=== PATIENT | male | born 1965 | race Caucasian/White ===

== ENCOUNTER 2016-05-21 21:27 | Emergency (ER) | payer BC, OTHER ==
[~2016-05-21] VITALS: Ht 177.8 cm; Wt 90.7 kg
--- NOTE | 2016-05-21 22:02 | PHYS DOC ---
Past Medical History Past Medical History: Diabetes-Type II, High Cholesterol, Heart Disease Past Surgical History: Coronary Bypass Surgery Alcohol Use: None Drug Use: None Adult General Chief Complaint Chief Complaint: SYNCOPE HPI HPI Patient is a 51 year old male who presents with complaint of a seizure episode. The patient had a seizure episode which took place in the parking lot outside of the emergency department. The patient was with his and stated that he felt that he was having symptoms coming on consistent with previous seizure episodes. The patient's tried to bring the patient to the emergency department before it took place, however the patient unfortunately had his seizure episode before he could make it into the emergency department. Patient has a complicated medical history including coronary artery disease status post multivessel bypass surgery. 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 The patient states that he is having sharp pain across the left side of his chest which is not unusual after having a seizure episode. The patient states that he was diagnosed with seizure disorder at [facility] and has been treated with oral magnesium daily which has helped keep his seizures under control. Patient also is on oxycodone therapy at home for treatment of chronic pain. Patient states that he normally lives at a 4 out of 10 but states that currently he is at 09 out of 10. Patient denies any nausea or vomiting. Patient is having upper epigastric pain currently. Patient has not taken any medications since onset of symptoms. Review of Systems Review of Systems Constitutional: Denies fever or chills [] Eyes: Denies change in visual acuity, redness, or eye pain [] HENT: Denies nasal congestion or sore throat [] Respiratory: Denies cough or shortness of breath [] Cardiovascular: Chest pain [] GI: Abdominal pain, denies nausea, vomiting, bloody stools or diarrhea [] : Denies dysuria or hematuria [] Musculoskeletal: Denies back pain or joint pain [] Integument: Denies rash or skin lesions [] Neurologic: Denies headache, focal weakness or sensory changes [] Current Medications Current Medications Current Medications Medications (Trade) Dose Ordered Sig/Boyd Start Time Stop Time Status Last Admin Dose Admin Hydromorphone HCl (Dilaudid) 2 mg 1X ONCE 05/21/16 23:45 05/21/16 23:46 DC 05/21/16 23:38 2 MG Magnesium Sulfate/ Dextrose (Magnesium Sulfate PREMIX 2GM) 50 ml @ 25 mls/hr 1X ONCE 05/21/16 23:00 05/21/16 23:52 DC 05/21/16 23:05 25 MLS/HR Ondansetron HCl 4 mg 4 mg 1X ONCE 05/21/16 22:30 05/21/16 22:31 DC 05/21/16 22:15 4 MG Sodium Chloride (Iv Sodium Chloride 0.9% 1000ml Bag) 1,000 ml @ 1,000 mls/hr Q1H 05/21/16 22:30 05/21/16 23:29 DC 05/21/16 22:14 1,000 MLS/HR Allergies Allergies Allergies Coded Allergies Type Severity Reaction Last Updated Verified Penicillins Allergy Intermediate 01/09/16 Yes ketorolac Allergy Intermediate 01/09/16 Yes Physical Exam Physical Exam Constitutional: Alert, afebrile, appears in moderate discomfort. [] HENT: Normocephalic, atraumatic, bilateral external ears normal, oropharynx moist, no oral exudates, nose normal. [] Eyes: PERRLA, EOMI, conjunctiva normal, no discharge. [] Neck: Normal range of motion, no tenderness, supple, no stridor. [] Cardiovascular: Tachycardia, regular rhythm, no murmur [] Lungs & Thorax: Bilateral breath sounds clear to auscultation, there is palpation along anterior chest wall causing reproducible pain [] Abdomen: Bowel sounds normal, soft, no tenderness, no masses, no pulsatile masses. [] Skin: Warm, dry, no erythema, no rash. [] Back: No tenderness, no CVA tenderness. [] Extremities: No tenderness, no cyanosis, no clubbing, ROM intact, no edema. [] Neurologic: Alert and oriented X 3, normal motor function, normal sensory function, no focal deficits noted. [] Current Patient Data Vital Signs Vital Signs Date Time Temp Pulse Resp B/P Pulse Ox O2 Delivery O2 Flow Rate FiO2 05/21/16 23:40 97 115/67 95 Room Air 05/21/16 23:38 16 05/21/16 21:38 98.4 98.4 Lab Values Laboratory Tests Test 05/21/16 21:41 05/21/16 21:48 05/21/16 22:26 White Blood Count 8.4x10^3/uL (4.0-11.0) Red Blood Count 5.90x10^6/uL (4.30-5.70) H Hemoglobin 16.2g/dL (13.0-17.5) Hematocrit 49.2% (39.0-53.0) Mean Corpuscular Volume 83fL (79-100) Mean Corpuscular Hemoglobin 28pg (25-35) Mean Corpuscular Hemoglobin Concent 33g/dL (31-37) Red Cell Distribution Width 14.1% (11.5-14.5) Platelet Count 191x10^3/uL (140-400) Neutrophils (%) (Auto) 63% (31-73) Lymphocytes (%) (Auto) 25% (24-48) Monocytes (%) (Auto) 10% (0-9) H Eosinophils (%) (Auto) 2% (0-3) Basophils (%) (Auto) 0% (0-3) Neutrophils # (Auto) 5.3x10^3uL (1.8-7.7) Lymphocytes # (Auto) 2.1x10^3/uL (1.0-4.8) Monocytes # (Auto) 0.8x10^3/uL (0.0-1.1) Eosinophils # (Auto) 0.2x10^3/uL (0.0-0.7) Basophils # (Auto) 0.0x10^3/uL (0.0-0.2) Sodium Level 141mmol/L (136-145) Potassium Level 3.9mmol/L (3.5-5.1) Chloride Level 101mmol/L (98-107) Carbon Dioxide Level 29mmol/L (21-32) Anion Gap 11 (6-14) Blood Urea Nitrogen 18mg/dL (8-26) Creatinine 0.8mg/dL (0.7-1.3) Estimated GFR (Cockcroft-Gault) 101.1 Glucose Level 297mg/dL (70-99) H Calcium Level 9.6mg/dL (8.5-10.1) Magnesium Level 1.6mg/dL (1.8-2.4) L Total Bilirubin 0.5mg/dL (0.2-1.0) Direct Bilirubin 0.2mg/dL (0.0-0.2) Aspartate Amino Transferase (AST) 19U/L (15-37) Alanine Aminotransferase (ALT) 32U/L (16-63) Alkaline Phosphatase 35U/L (46-116) L Creatine Kinase 51U/L (39-308) Creatine Kinase MB (Mass) 0.8ng/mL (0.0-3.6) Creatine Kinase MB Relative Index 1.6% (0-4) Troponin I Quantitative < 0.017ng/mL (0.000-0.055) CY-Sse-W-Type Natriuretic Peptide 107pg/mL (0-124) Total Protein 7.6g/dL (6.4-8.2) Albumin 4.2g/dL (3.4-5.0) Lipase 192U/L (73-393) Glucose (Fingerstick) 287mg/dL (70-99) H Urine Collection Type Unknown Urine Color Yellow Urine Clarity Clear Urine pH 6.5 Urine Specific [place] 1.020 Urine Protein Negativemg/dL (NEG-TRACE) Urine Glucose (UA) >=1000mg/dL (NEG) Urine Ketones (Stick) Negativemg/dL (NEG) Urine Blood Negative (NEG) Urine Nitrite Negative (NEG) Urine Bilirubin Negative (NEG) Urine Urobilinogen Dipstick 0.2mg/dL (0.2 mg/dL) Urine Leukocyte Esterase Negative (NEG) Urine RBC 0/HPF (0-2) Urine WBC Occ/HPF (0-4) Urine Squamous Epithelial Cells Occ/LPF Urine Bacteria 0/HPF (0-FEW) Urine Hyaline Casts Occasional/HPF Urine Mucus Slight/LPF Laboratory Tests 05/21/16 21:41 Laboratory Tests 05/21/16 21:41 EKG EKG Interpreted by me: Heart rate 92, sinus rhythm, normal intervals, normal axis, no acute ST/T wave sounds present [] Radiology/Procedures Radiology/Procedures One view AP chest x-ray interpreted by me: No infiltrates, no effusions, normal cardiac silhouette [] Course & Med Decision Making Course & Med Decision Making Pertinent Labs and Imaging studies reviewed. (See chart for details) The patient was treated with IV Dilaudid with improvement good improvement in pain symptoms. The patient was found to have a low magnesium level of 1.6 and was given 2 g of IV magnesium sulfate. On reevaluation, patient states he feels much better and would like to go home. Advised patient follow-up with his primary doctor in the next 3-5 days and return to emergency department for any worsening symptoms. Patient voiced understanding and in agreement with treatment plan. Dragon Disclaimer Dragon Disclaimer This electronic medical record was generated, in whole or in part, using a voice recognition dictation system. Departure Departure Impression: Primary Impression: Chest wall pain Additional Impressions: Hypomagnesemia Seizure disorder Disposition: HOME, SELF-CARE Condition: IMPROVED Referrals: NO PCP (PCP) Patient Instructions: Chest Wall Pain, Hypomagnesemia Additional Instructions: Follow-up with your primary doctor in the next 3-5 days. Return to the emergency department for any worsening symptoms. Problem Qualifiers KENDELL REY MD May 21, 2016 22:02
[2016-05-21 22:08] LABS: BASO % 0 % (0-3); EOS % 2 % (0-3); HEMATOCRIT 49.2 % (39.0-53.0); HEMOGLOBIN 16.2 g/dL (13.0-17.5); LYMPH # 2.1 x10^3/uL (1.0-4.8); LYMPH % 25 % (24-48); MEAN CORPUSCULAR HEMOGLOBIN 28 pg (25-35); MEAN CORPUSCULAR HGB CONC 33 g/dL (31-37); MEAN CORPUSCULAR VOLUME 83 fL (79-100); MONO % 10 % (0-9); NEUT % 63 % (31-73); PLATELET COUNT 191 x10^3/uL (140-400); RED CELL DISTRIBUTION WIDTH 14.1 % (11.5-14.5); WHITE BLOOD COUNT 8.4 x10^3/uL (4.0-11.0)
[2016-05-21 22:17] LABS: CALCIUM 9.6 mg/dL (8.5-10.1); CREATININE 0.8 mg/dL (0.7-1.3); GFR 101.1; POTASSIUM 3.9 mmol/L (3.5-5.1)
[2016-05-21 22:23] LABS: ALBUMIN 4.2 g/dL (3.4-5.0); DIRECT BILIRUBIN 0.2 mg/dL (0.0-0.2); MAGNESIUM 1.6 mg/dL (1.8-2.4); TOTAL BILIRUBIN 0.5 mg/dL (0.2-1.0); TOTAL PROTEIN 7.6 g/dL (6.4-8.2)
[2016-05-21] MEDS ORDERED: IV NORMAL SALINE 1000ML BAG 1,000 ML IV SCH (22:30)
[2016-05-21] MEDS ORDERED: HYDROMORPHONE 2 MG/ML VIAL. IV ONE ×3 (22:30→23:45)
[2016-05-21] MEDS ORDERED: ONDANSETRON PF 4 MG/2 ML VIAL. IV ONE (22:30)
[2016-05-21 22:32] LABS: CKMB INDEX 1.6 % (0-4); CKMB MASS 0.8 ng/mL (0.0-3.6)
[2016-05-21 22:33] LABS: BILIRUBIN,URINE NEGATIVE (NEG); GLUCOSE,URINE >=1000 mg/dL (NEG); NITRITE,URINE NEGATIVE (NEG); PH,URINE 6.5; PROTEIN,URINE NEGATIVE (NEG-TRACE); UROBILINOGEN,URINE 0.2 mg/dL (0.2 mg/dL)
[2016-05-21 22:39] LABS: BACTERIA,URINE 0 /HPF (0-FEW); RBC,URINE 0 /HPF (0-2); SQUAMOUS EPITHELIAL CELL,UR OCC /LPF; WBC,URINE OCC /HPF (0-4)
[2016-05-21] MEDS ORDERED: MAGNESIUM SULFATE 2GM 50 ML IV ONE (23:00)
[2016-05-21 23:40] VITALS: BP 115/67
--- NOTE | 2016-05-22 06:27 | EKG ---
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
--- NOTE | 2016-05-22 07:55 | RAD ---
Portable chest, 05/21/2016: History: Seizure, left-sided chest pain The heart size and pulmonary vascularity are normal. No pulmonary infiltrates are seen. There is no evidence of pleural fluid. IMPRESSION: No acute cardiopulmonary abnormality is detected.
== END 2016-05-21 23:45 | disposition home or self-care (01) ==
LOC: ER 21:27
DX: G40.909 Epilepsy, unspecified, not intractable, without status epilepticus (principal); R07.89 Other chest pain; E83.42 Hypomagnesemia; R00.0 Tachycardia, unspecified; R10.13 Epigastric pain; G89.29 Other chronic pain; E11.9 Type 2 diabetes mellitus without complications; E78.00 Pure hypercholesterolemia, unspecified; I25.10 Atherosclerotic heart disease of native coronary artery without angina pectoris; Z95.1 Presence of aortocoronary bypass graft; Z88.0 Allergy status to penicillin; Z88.6 Allergy status to analgesic agent; Z79.891 Long term (current) use of opiate analgesic
CPT/HCPCS: 36415; 71010; 80048; 80076; 81001; 82553; 82947; 83690; 83735; 83880; 84484; 85027; 93005; 96361; 96365; 96375; 96376; 99285; J1170; J2405; J7030; J7060

== ENCOUNTER 2017-02-22 22:13 | Emergency (ER) | payer OTHER, BC ==
[2017-02-22 22:42] LABS: ADD MAN DIFF? NO
[2017-02-22 22:46] LABS: BASO % 0 % (0-3); EOS # 0.2 x10^3/uL (0.0-0.7); EOS % 2 % (0-3); HEMATOCRIT 46.4 % (39.0-53.0); HEMOGLOBIN 15.1 g/dL (13.0-17.5); LYMPH # 3.3 x10^3/uL (1.0-4.8); LYMPH % 40 % (24-48); MEAN CORPUSCULAR HEMOGLOBIN 27 pg (25-35); MEAN CORPUSCULAR HGB CONC 33 g/dL (31-37); MEAN CORPUSCULAR VOLUME 83 fL (79-100); MONO # 0.8 x10^3/uL (0.0-1.1); MONO % 9 % (0-9); NEUT % 49 % (31-73); PLATELET COUNT 252 x10^3/uL (140-400); RED BLOOD COUNT 5.59 x10^6/uL (4.30-5.70); RED CELL DISTRIBUTION WIDTH 15.3 % (11.5-14.5); WHITE BLOOD COUNT 8.3 x10^3/uL (4.0-11.0)
[2017-02-22 22:58] LABS: MAGNESIUM 1.3 mg/dL (1.8-2.4)
[2017-02-22 22:58] LABS: ANION GAP 14 (6-14); BLOOD UREA NITROGEN 20 mg/dL (8-26); BUN/CREATININE RATIO 29 (6-20); CALCIUM 9.2 mg/dL (8.5-10.1); CARBON DIOXIDE 26 mmol/L (21-32); CHLORIDE 105 mmol/L (98-107); CREATININE 0.7 mg/dL (0.7-1.3); GFR 117.5; GLUCOSE 262 mg/dL (70-99); POTASSIUM 4.1 mmol/L (3.5-5.1); SODIUM 145 mmol/L (136-145)
[2017-02-22] MEDS: ASPIRIN CHEWABLE 81 MG TABLET. PO ×2 (22:59)
[2017-02-22 23:04] LABS: ALBUMIN 3.8 g/dL (3.4-5.0); ALBUMIN/GLOBULIN RATIO 1.5 (1.0-1.7); ALK PHOS 31 U/L (46-116); ALT (SGPT) 22 U/L (16-63); AST (SGOT) 14 U/L (15-37); TOTAL BILIRUBIN 0.3 mg/dL (0.2-1.0); TOTAL PROTEIN 6.4 g/dL (6.4-8.2)
[2017-02-22] MEDS: HYDROmorphone 2 MG/ML VIAL IV ×2 (23:04)
[2017-02-22] MEDS: IV NORMAL SALINE 1000ML BAG 1,000 ML IV ×2 (23:04)
[2017-02-22 23:06] LABS: TROPONINI < 0.017 ng/mL (0.000-0.055)
[2017-02-23] MEDS: HYDROmorphone 2 MG/ML VIAL IV ×2 (00:35)
[2017-02-23] MEDS: MAGNESIUM SULFATE 2GM 50 ML IV ×2 (00:36)
== END 2017-02-23 01:08 | disposition left against medical advice (07) ==
LOC: ER 02-23 01:08
DX: R07.89 Other chest pain (principal); Z76.5 Malingerer [conscious simulation]; L98.9 Disorder of the skin and subcutaneous tissue, unspecified; E11.9 Type 2 diabetes mellitus without complications; E78.00 Pure hypercholesterolemia, unspecified; I25.10 Atherosclerotic heart disease of native coronary artery without angina pectoris; I25.2 Old myocardial infarction; Z95.1 Presence of aortocoronary bypass graft; Z98.890 Other specified postprocedural states; Z86.79 Personal history of other diseases of the circulatory system; Z79.82 Long term (current) use of aspirin; Z88.6 Allergy status to analgesic agent; Z88.0 Allergy status to penicillin
CPT/HCPCS: 36415; 71045; 80053; 83735; 84484; 85025; 93005; 96361; 96374; 96376; 99285-25; J1170; J7030; J7060

== ENCOUNTER 2018-02-25 15:54 | Emergency (ER) | payer OTHER ==
[2017-02-23 00:37] VITALS: BP 117/71
[2018-02-25] MEDS ORDERED: ASPIRIN CHEWABLE 81 MG TABLET. PO ONE (16:30)
[2018-02-25] MEDS ORDERED: ONDANSETRON PF 4 MG/2 ML VIAL. IV ONE (16:30)
--- NOTE | 2018-02-25 16:44 | RAD ---
PROCEDURE: PORTABLE CHEST 1V CLINICAL INDICATION: CHEST PAIN, NAUSEA X1 DAY COMPARISON: 02/22/2017 FINDINGS: No pneumothorax identified. Cardiac and mediastinal contours unremarkable. No pulmonary consolidation or acute airspace disease. No acute osseous abnormalities identified. IMPRESSION: No pulmonary consolidation or acute airspace disease. Electronically signed by: Ralph Ovalles DO (02/25/2018 4:40 PM) [id number]
--- NOTE | 2018-02-25 16:54 | EKG ---
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
--- NOTE | 2018-02-25 17:02 | PHYS DOC ---
Past Medical History Past Medical History: Diabetes-Type II, High Cholesterol, Heart Disease, [place], Other Additional Past Medical Histor: CARDIAC CONVULSIVE SYNCOPE Past Surgical History: Coronary Bypass Surgery, Other Additional Past Surgical Histo: "12 THORACIC SURGERIES" Alcohol Use: None Drug Use: None Adult General Chief Complaint Chief Complaint: CHEST PAIN HPI HPI Patient is a 53 year old male who presents with complaining of chest pain. Patient states [place] and developed substernal and epigastric aching pain as a constant pain with episodes of sharp pain. Patient complaining of nausea and shortness of breath without palpitation , vomiting, radiation of pain, fever and chills. Patient had extensive cardiac history with unhealed sternal wound and hypomagnesemia and taking Dilaudid and magnesium level central line at home by himself. Patient states he was [facility] with diagnose of pancreatitis. Patient rated his pain 8/10 and he states his pain did not change with taking nitroglycerin 2 by himself and asking for pain medication. Review of Systems Review of Systems Constitutional: Denies fever or chills [] Eyes: Denies change in visual acuity, redness, or eye pain [] HENT: Denies nasal congestion or sore throat [] Respiratory: Denies cough, reports shortness of breath [] Cardiovascular: No additional information not addressed in HPI [] GI: Denies abdominal pain, vomiting, bloody stools or diarrhea , reports nausea [] : Denies dysuria or hematuria [] Musculoskeletal: Denies back pain or joint pain [] Integument: Denies rash or skin lesions [] Neurologic: Denies headache, focal weakness or sensory changes [] Endocrine: Denies polyuria or polydipsia [] All other systems were reviewed and found to be within normal limits, except as documented in this note. Current Medications Current Medications Current Medications Medications (Trade) Dose Ordered Sig/Boyd Start Time Stop Time Status Last Admin Dose Admin Aspirin (Children'S Aspirin) 324 mg 1X ONCE 02/25/18 16:30 02/25/18 16:31 DC Ondansetron HCl (Zofran) 4 mg 1X ONCE 02/25/18 16:30 02/25/18 16:31 DC Allergies Allergies Allergies Coded Allergies Type Severity Reaction Last Updated Verified Penicillins Allergy Intermediate 01/09/16 Yes ketorolac Allergy Intermediate 01/09/16 Yes Physical Exam Physical Exam Constitutional: Well developed, well nourished, mild distress, non-toxic appearance. [] HENT: Normocephalic, atraumatic, oropharynx moist, no oral exudates, nose normal. [] Eyes: PERRLA, EOMI, conjunctiva normal, no discharge. [] Neck: Normal range of motion, no tenderness, supple, no stridor. [] Cardiovascular:Heart rate regular rhythm, no murmur [] Lungs & Thorax: Bilateral breath sounds clear to auscultation, substernal chest wall reproducible pain [] Abdomen: Bowel sounds normal, soft, no tenderness, no masses, no pulsatile masses. [] Skin: Warm, dry, no erythema, no rash. [] Back: No tenderness, no CVA tenderness. [] Extremities: No tenderness, no cyanosis, no clubbing, ROM intact, no edema. [] Neurologic: Alert and oriented X 3, normal motor function, normal sensory function, no focal deficits noted. [] Psychologic: Affect anxious and defensive, judgement normal, mood normal. [] EKG EKG EKG interpreted by me. EKG at 1614 showed sinus tachycardia at rate of 107, left atrial abnormalities, poor R-wave progress in anteroseptal leads, no acute ST and T-wave abnormalities. Radiology/Procedures Radiology/Procedures [] Course & Med Decision Making Course & Med Decision Making Evaluation of patient in ER showed 53-year-old male patient with complaining of chest pain. Patient is known to me from [facility] with frequent emergency room visits related to chest pain and demanding for high doses of narcotic pain medication. Patient refused to have labs and only wanted to have pain medication. Patient signed AGAINST MEDICAL ADVICE and decided to go to another hospital. Dragon Disclaimer Dragon Disclaimer This electronic medical record was generated, in whole or in part, using a voice recognition dictation system. Departure Departure Impression: Primary Impression: Chest pain Additional Impression: Left against medical advice Disposition: 07 AGAINST MEDICAL ADVICE (at 1635) Condition: STABLE Referrals: NO PCP (PCP) Problem Qualifiers WING STEVENSON MD Feb 25, 2018 17:02
== END 2018-02-25 16:38 | disposition left against medical advice (07) ==
LOC: ER 15:54
DX: R07.2 Precordial pain (principal); R10.13 Epigastric pain; R06.02 Shortness of breath; R11.2 Nausea with vomiting, unspecified; R50.9 Fever, unspecified; E11.9 Type 2 diabetes mellitus without complications; E78.00 Pure hypercholesterolemia, unspecified; I25.2 Old myocardial infarction; Z95.1 Presence of aortocoronary bypass graft; Z86.79 Personal history of other diseases of the circulatory system; Z88.0 Allergy status to penicillin; Z88.6 Allergy status to analgesic agent
CPT/HCPCS: 71045; 93005; 99283

== ENCOUNTER 2018-06-09 23:58 | Emergency (ER) | payer OTHER ==
[~2018-06-09] VITALS: Ht 177.8 cm; Wt 86.2 kg
[2018-06-10] MEDS ORDERED: IV NORMAL SALINE 1000ML BAG 1,000 ML IV ONE (00:15)
[2018-06-10] MEDS ORDERED: ASPIRIN 325 MG TABLET PO ONE (00:15)
[2018-06-10 00:24] LABS: BASO # 0.1 x10^3/uL (0.0-0.2); BASO % 1 % (0-3); EOS # 0.2 x10^3/uL (0.0-0.7); EOS % 3 % (0-3); HEMATOCRIT 40.5 % (39.0-53.0); HEMOGLOBIN 13.3 g/dL (13.0-17.5); LYMPH # 3.1 x10^3/uL (1.0-4.8); LYMPH % 41 % (24-48); MEAN CORPUSCULAR HEMOGLOBIN 26 pg (25-35); MEAN CORPUSCULAR HGB CONC 33 g/dL (31-37); MEAN CORPUSCULAR VOLUME 80 fL (79-100); MONO # 0.7 x10^3/uL (0.0-1.1); MONO % 9 % (0-9); NEUT # 3.4 x10^3uL (1.8-7.7); NEUT % 46 % (31-73); PLATELET COUNT 243 x10^3/uL (140-400); RED BLOOD COUNT 5.05 x10^6/uL (4.30-5.70); RED CELL DISTRIBUTION WIDTH 15.6 % (11.5-14.5); WHITE BLOOD COUNT 7.5 x10^3/uL (4.0-11.0)
[2018-06-10 00:36] LABS: CALCIUM 9.4 mg/dL (8.5-10.1); CREATININE 0.7 mg/dL (0.7-1.3); GFR 117.1; POTASSIUM 3.8 mmol/L (3.5-5.1)
[2018-06-10 00:42] LABS: ALBUMIN/GLOBULIN RATIO 1.4 (1.0-1.7); MAGNESIUM 1.4 mg/dL (1.8-2.4); TOTAL BILIRUBIN 0.3 mg/dL (0.2-1.0); TOTAL PROTEIN 6.9 g/dL (6.4-8.2)
[2018-06-10 00:52] LABS: CREATINE KINASE 45 U/L (39-308)
--- NOTE | 2018-06-10 00:52 | PHYS DOC ---
Past Medical History Past Medical History: Diabetes-Type II, High Cholesterol, Heart Disease, [place], Seizure, Other Additional Past Medical Histor: CARDIAC CONVULSIVE SYNCOPE, Hypomagnesemia (MALINA MUSTAFA DO) Past Surgical History: Coronary Bypass Surgery, Other Additional Past Surgical Histo: "12 THORACIC SURGERIES" (MALINA MUSTAFA DO) Smoking: Cigarettes Alcohol Use: None Drug Use: None (MALINA MUSTAFA DO) Adult General Chief Complaint Chief Complaint: CHEST PAIN HPI HPI 53-year-old male with past medical history of CAD requiring CABG and history of seizures secondary to low magnesium levels presents with report of seizure which occurred at 2200. Spouse reports this was a witnessed seizure which lasted marcin roximately 60-90 seconds. Patient did have a postictal episode lasting approximately 40 minutes. Patient subsequently reported some substernal chest pain. 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 Patient does receive chronic pain medication- Dilaudid. Patient is currently under a pain contract. 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 Patient reports his pain level normally is around a 5 but currently is at an 8. Patient also reports some increased stressors including moving homes recently. Patient reports he also was exerting himself over the last few days during this move. Denies any leg swelling or calf tenderness. Denies history of DVT/PE. Patient reports he thinks his magnesium level might be low. Patient did take 324 mg of aspirin and 2 sublingual nitroglycerin prior to arrival. (MALINA MUSTAFA DO) Review of Systems Review of Systems Constitutional: Denies fever or chills [] Eyes: Denies change in visual acuity, redness, or eye pain [] HENT: Denies nasal congestion or sore throat [] Respiratory: Denies cough or shortness of breath [] Cardiovascular: Reports chest pain and palpitations GI: Denies abdominal pain, nausea, vomiting, or diarrhea [] : Denies dysuria or hematuria [] Musculoskeletal: Denies back pain or joint pain [] Integument: Denies rash or skin lesions [] Neurologic: Denies headache, focal weakness or sensory changes [] Complete systems were reviewed and found to be within normal limits, except as documented in this note. (MALINA MUSTAFA DO) Current Medications Current Medications Current Medications Medications (Trade) Dose Ordered Sig/Boyd Start Time Stop Time Status Last Admin Dose Admin Aspirin (Avani Aspirin) 325 mg 1X ONCE 06/10/18 00:15 06/10/18 00:16 DC Hydromorphone HCl (Dilaudid) 2 mg 1X ONCE 06/10/18 02:30 06/10/18 02:31 DC 06/10/18 02:45 2 MG Insulin Human Lispro (HumaLOG) 10 units 1X ONCE 06/10/18 01:15 06/10/18 01:16 DC 06/10/18 01:33 10 UNITS Magnesium Sulfate/ Dextrose 100 ml @ 25 mls/hr 1X ONCE 06/10/18 01:15 06/10/18 03:31 DC 06/10/18 01:29 25 MLS/HR Sodium Chloride 1,000 ml @ 1,000 mls/hr 1X ONCE 06/10/18 00:15 06/10/18 01:15 DC 06/10/18 00:22 1,000 MLS/HR (SARAI SCHWARZ MD) Allergies Allergies Allergies Coded Allergies Type Severity Reaction Last Updated Verified Penicillins Allergy Intermediate 01/09/16 Yes ketorolac Allergy Intermediate 01/09/16 Yes codeine Allergy Mild Itching 06/10/18 Yes (SARAI SCHWARZ MD) Physical Exam Physical Exam Constitutional: Well developed, well nourished, no acute distress, non-toxic appearance. [] HENT: Normocephalic, atraumatic, oropharynx moist Eyes: Conjunctiva normal, no discharge. [] Neck: Normal range of motion, no tenderness, supple, no stridor. [] Cardiovascular: Heart rate regular rhythm, healed midline sternum, tender to pa lpation Lungs & Thorax: Bilateral breath sounds clear to auscultation [] Abdomen: Soft, no tenderness Skin: Warm, dry, no erythema, no rash. [] Back: No calves tenderness, no CVA tenderness. [] Extremities: No tenderness, ROM intact, no edema. [] Neurologic: Alert and oriented X 3, no focal deficits noted. [] Psychologic: Affect normal, judgement normal, mood normal. [] (MALINA MUSTAFA DO) Current Patient Data Vital Signs Vital Signs Date Time Temp Pulse Resp B/P (MAP) Pulse Ox O2 Delivery O2 Flow Rate FiO2 06/10/18 02:48 80 20 158/76 (103) 95 06/09/18 23:58 98.4 Room Air 98.4 (SARAI SCHWARZ MD) Lab Values Laboratory Tests Test 06/10/18 00:10 06/10/18 02:04 06/10/18 02:05 White Blood Count 7.5 x10^3/uL (4.0-11.0) Red Blood Count 5.05 x10^6/uL (4.30-5.70) Hemoglobin 13.3 g/dL (13.0-17.5) Hematocrit 40.5 % (39.0-53.0) Mean Corpuscular Volume 80 fL (79-100) Mean Corpuscular Hemoglobin 26 pg (25-35) Mean Corpuscular Hemoglobin Concent 33 g/dL (31-37) Red Cell Distribution Width 15.6 % (11.5-14.5) H Platelet Count 243 x10^3/uL (140-400) Neutrophils (%) (Auto) 46 % (31-73) Lymphocytes (%) (Auto) 41 % (24-48) Monocytes (%) (Auto) 9 % (0-9) Eosinophils (%) (Auto) 3 % (0-3) Basophils (%) (Auto) 1 % (0-3) Neutrophils # (Auto) 3.4 x10^3uL (1.8-7.7) Lymphocytes # (Auto) 3.1 x10^3/uL (1.0-4.8) Monocytes # (Auto) 0.7 x10^3/uL (0.0-1.1) Eosinophils # (Auto) 0.2 x10^3/uL (0.0-0.7) Basophils # (Auto) 0.1 x10^3/uL (0.0-0.2) Prothrombin Time 13.0 SEC (11.7-14.0) Prothrombin Time INR 1.0 (0.8-1.1) Sodium Level 136 mmol/L (136-145) Potassium Level 3.8 mmol/L (3.5-5.1) Chloride Level 98 mmol/L (98-107) Carbon Dioxide Level 25 mmol/L (21-32) Anion Gap 13 (6-14) Blood Urea Nitrogen 15 mg/dL (8-26) Creatinine 0.7 mg/dL (0.7-1.3) Estimated GFR (Cockcroft-Gault) 117.1 BUN/Creatinine Ratio 21 (6-20) H Glucose Level 348 mg/dL (70-99) H Calcium Level 9.4 mg/dL (8.5-10.1) Magnesium Level 1.4 mg/dL (1.8-2.4) L Total Bilirubin 0.3 mg/dL (0.2-1.0) Aspartate Amino Transferase (AST) 11 U/L (15-37) L Alanine Aminotransferase (ALT) 21 U/L (16-63) Alkaline Phosphatase 34 U/L (46-116) L Creatine Kinase 45 U/L (39-308) Creatine Kinase MB (Mass) 0.6 ng/mL (0.0-3.6) Creatine Kinase MB Relative Index % (0-4) Troponin I Quantitative < 0.017 ng/mL (0.000-0.055) 0.021 ng/mL (0.000-0.055) ID-Hxd-P-Type Natriuretic Peptide 62 pg/mL (0-124) Total Protein 6.9 g/dL (6.4-8.2) Albumin 4.0 g/dL (3.4-5.0) Albumin/Globulin Ratio 1.4 (1.0-1.7) Lipase 331 U/L (73-393) Glucose (Fingerstick) 267 mg/dL (70-99) H Laboratory Tests 06/10/18 00:10 Laboratory Tests 06/10/18 00:10 (SARAI SCHWARZ MD) EKG EKG @0005 NSR at 92bpm, NO ST elevation, Q wave in III, compared to prior EKG from without significant change. (MALINA MUSTAFA DO) Course & Med Decision Making Course & Med Decision Making Pertinent Labs and Imaging studies reviewed. 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 Patient reports interval chest pain. Patient had taken 325 mg of aspirin and 2 sublingual Nitroglycerin prior to arrival. Patient does have chronic pain disorder. Dilaudid 2 mg IV push provided. IV fluid hydration given. EKG stable. Labs obtained and posted to chart. Troponin WNL, Hypomagnesemia noted at 1.4. Patient reports his management plan for that level is usually 4grams of Mag. Mag ordered. Hyperglycemia addressed. Chest x-ray pending. HEART score 4. Pain likely secondary to chronic chest wall pain with acute on chronic seizure due to hypomagnesemia. However cannot fully exclude ACD. Patient offered admission for further evaluation. Patient reports he thinks more likely his chronic pain due to malunion and requests to follow-up as outpatient. Repeat troponin therefore ordered at 2 hours from initial. Sign out given to Dr. Schwarz for further evaluation and final disposition. Discussed current plan and findings with patient and family, who acknowledge understanding and agreement. (MALINA MUSTAFA DO) Course & Med Decision Making I received signout from Dr. Mustafa at 1 AM, he asked me to check another troponin at 2 AM reevaluate the patient. Detailed history was noted above and I did talk to the patient in the in detail again I reevaluated him. He said his pain is down to a 6 out of 10 from a 9 out of 10. He does relate a seizure history, he says every time he has a seizure the chronic sternal pain gets worse because the "bones rubbing together". He does have reproducible tenderness to palpation on his sternum which is abnormally shaped. Of note he does have several presentations to this emergency room with a very very similar complaints. He also has received a total of 2 doses of IV Dilaudid in the emergency room on my reevaluation of him. Noted the second troponin is 0.0 to one still well within the normal range. This is 4 hours after the event in light of the within normal limits troponin and the very atypical story very unlikely to be an acute coronary syndrome and a long history of chronic pain I think at this point in time it is reasonable to rule out acute N STEMI. I did talk to the patient about options now which would include going home and continuing his oral pain regimen and following up with his doctors or possibly being observed in the emergency room for a few more hours or being admitted to the hospital. At this time he does feel that this is his chronic pain we talked about further pain management I did say that I felt 2 doses of IV Dilaudid was reasonable and appropriate he does have tolerable pain at this moment. In light of all that he did consent to being discharged at this time I think overall this seems reasonable given the whole spectrum of his history. (SARAI SCHWARZ MD) Dragon Disclaimer Dragon Disclaimer This electronic medical record was generated, in whole or in part, using a voice recognition dictation system. (MALINA MUSTAFA DO) Departure Departure Impression: Primary Impression: Chest pain Additional Impressions: History of seizure Hypomagnesemia Hyperglycemia Disposition: HOME, SELF-CARE Condition: STABLE Referrals: NO PCP (PCP) The HEART Score for CP Pts HEART Score for Chest Pain: HEART Score for Chest Pain Response (Comments) Value History Moderately Suspicious 1 ECG Normal 0 Age >45 - < 65 1 Risk Factors >3 Risk Factors or Hx CAD 2 Troponin < Normal Limit 0 Total 4 Risk Factors: Risk Factors: DM, Current or recent (<one month) smoker, HTN, HLP, family history of CAD, obesity. Risk Scores: Score 0 - 3: 2.5% MACE over next 6 weeks - Discharge Home Score 4 - 6: 20.3% MACE over next 6 weeks - Admit for Clinical Observation Score 7 - 10: 72.7% MACE over next 6 weeks - Early Invasive Strategies (MALINA MUSTAFA DO) Problem Qualifiers Primary Impression: Chest pain Chest pain type: unspecified Qualified Codes: R07.9 - Chest pain, unspecified MALINA MUSTAFA DO June 10, 2018 00:52 SARAI SCHWARZ MD June 10, 2018 04:06
[2018-06-10] MEDS ORDERED: HYDROmorphone 2 MG/ML VIAL IV ONE ×2 (01:00→02:30)
[2018-06-10] MEDS ORDERED: MAGNESIUM SULFATE 4GM 100 ML IV ONE (01:15)
[2018-06-10] MEDS ORDERED: INSULIN LISPRO 300 UNITS/3 ML INSULN.PEN. SQ ONE (01:15)
[2018-06-10 02:48] VITALS: BP 158/76
--- NOTE | 2018-06-10 07:45 | EKG ---
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
--- NOTE | 2018-06-10 08:34 | RAD ---
Chest radiograph 06/10/2018 12:48 AM INDICATION: Chest pain COMPARISON: February 25, 2018 TECHNIQUE: Frontal and lateral views of the chest are provided. FINDINGS: The cardiomediastinal silhouette is within normal limits. There are no pleural effusions. There is no pulmonary vascular congestion. There is no pneumothorax. The lungs are clear. No significant osseous abnormality is identified. IMPRESSION: No acute cardiopulmonary process. Electronically signed by: Viviane Hardy MD (06/10/2018 8:31 AM) [id number]
== END 2018-06-10 03:31 | disposition home or self-care (01) ==
LOC: ER 23:58
DX: R07.2 Precordial pain (principal); E11.65 Type 2 diabetes mellitus with hyperglycemia; E83.42 Hypomagnesemia; R56.9 Unspecified convulsions; I11.9 Hypertensive heart disease without heart failure; E78.00 Pure hypercholesterolemia, unspecified; I25.2 Old myocardial infarction; F17.210 Nicotine dependence, cigarettes, uncomplicated; Z95.1 Presence of aortocoronary bypass graft; Z88.0 Allergy status to penicillin; Z88.5 Allergy status to narcotic agent; Z88.6 Allergy status to analgesic agent
CPT/HCPCS: 36415; 71046; 80053; 82553; 82962; 83690; 83735; 83880; 84484; 85025; 85610; 93005; 96361; 96365; 96366; 96375; 96376; 99285; J1170; J1815; J3475; J7030

== ENCOUNTER 2018-07-06 22:27 | Emergency (ER) | payer OTHER ==
[~2018-07-06] VITALS: Ht 177.8 cm; Wt 88.5 kg
[2018-07-06] MEDS ORDERED: HYDROmorphone 2 MG/ML VIAL IV ONE (22:45)
[2018-07-06] MEDS ORDERED: IV NORMAL SALINE 1000ML BAG 1,000 ML IV ONE (22:45)
[2018-07-06 22:49] LABS: BASO % 1 % (0-3); EOS # 0.2 x10^3/uL (0.0-0.7); EOS % 3 % (0-3); HEMATOCRIT 39.4 % (39.0-53.0); HEMOGLOBIN 13.1 g/dL (13.0-17.5); LYMPH # 2.5 x10^3/uL (1.0-4.8); LYMPH % 35 % (24-48); MEAN CORPUSCULAR HEMOGLOBIN 27 pg (25-35); MEAN CORPUSCULAR HGB CONC 33 g/dL (31-37); MEAN CORPUSCULAR VOLUME 80 fL (79-100); MONO % 14 % (0-9); NEUT # 3.5 x10^3uL (1.8-7.7); NEUT % 48 % (31-73); PLATELET COUNT 249 x10^3/uL (140-400); RED BLOOD COUNT 4.93 x10^6/uL (4.30-5.70); RED CELL DISTRIBUTION WIDTH 15.6 % (11.5-14.5); WHITE BLOOD COUNT 7.3 x10^3/uL (4.0-11.0)
[2018-07-06 23:02] LABS: CREATININE 0.9 mg/dL (0.7-1.3); GFR 87.6; POTASSIUM 4.2 mmol/L (3.5-5.1)
[2018-07-06 23:07] LABS: ALBUMIN 3.9 g/dL (3.4-5.0); ALBUMIN/GLOBULIN RATIO 1.3 (1.0-1.7); TOTAL BILIRUBIN 0.3 mg/dL (0.2-1.0)
[2018-07-06 23:17] LABS: CREATINE KINASE 37 U/L (39-308)
[2018-07-06] MEDS ORDERED: MAGNESIUM SULFATE 4GM 100 ML IV ONE (23:30)
[2018-07-06] MEDS ORDERED: CONTRAST GIVEN. MC PRN (23:45)
[2018-07-06] MEDS ORDERED: IOHEXOL 350 MG/ML 100 ML VIAL. IV ONE (23:45)
--- NOTE | 2018-07-07 00:24 | RAD ---
INDICATION: Chest pain COMPARISON: January 2016 TECHNIQUE: Axial CT images obtained through the chest. Intravenous contrast utilized. Angiogram 3D images processed per protocol. One or more of the following individualized dose reduction techniques were utilized for this examination: 1. Automated exposure control; 2. Adjustment of the mA and/or kV according to patient size; 3. Use of iterative reconstruction technique. FINDINGS: Patient motion limits exam. No evidence of pneumothorax. Right-sided pulmonary nodule measuring up to about 6 mm. Mild groundglass opacities. Thyroid nodules identified. Degenerative changes the spine. Poststernotomy changes. Coronary artery calcific atherosclerosis. Portion of a ascending thoracic aorta obscured by motion but no definite aneurysm or dissection flap in the visualized portions. No embolus seen in the main, right main or left main pulmonary artery. Main pulmonary artery measures up to 38 mm. IMPRESSION: Examination is limited by patient motion. No embolus is seen in the main, right main or left main pulmonary artery but the more peripheral vessels are obscured. Enlarged central pulmonary arteries. Would correlate for possible causes such as pulmonary artery hypertension. Mild groundglass opacities. Could be from hypoventilatory changes although mild edema or small airway inflammation can have this appearance. Thyroid nodule. Nonemergent ultrasound could better evaluate. Calcific atherosclerosis. 6 mm right lung nodule. Similar to minimally increased from prior. Fleischner Society recommendations for solitary solid lung nodule follow up.: In a low risk patient: <6mm - No follow up required. 6-8mm - 6-[address], then CT at 18-24 months. >8mm - CT at 3 months, PET/CT or tissue sampling. In a high risk patient (history of smoking or other known risk factors): <6mm - Follow up CT at 12 months. 6-8mm - 6-[address], then CT at 18-24 months. >8mm - CT at 3 months, PET/CT or tissue sampling. Fleischner Society recommendations for multiple solid lung nodule follow up.: In a low risk patient: <6mm - No follow up required. 6-8mm - 3-[address], then CT at 18-24 months. >8mm - CT at 3-6 months, then at 18-24 months. PET/CT or tissue sampling based on most suspicious nodule. In a high risk patient (history of smoking or other known risk factors): <6mm - Follow up CT at 12 months. 6-8mm - 3-[address], then CT at 18-24 months. >8mm - CT at 3-6 months, PET/CT or tissue sampling option based on most suspicious nodule. Electronically signed by: Isidro Jones MD (07/07/2018 12:21 AM) [facility]
[2018-07-07] MEDS ORDERED: HYDROmorphone 2 MG/ML VIAL IV ONE ×2 (00:30→01:00)
--- NOTE | 2018-07-07 01:50 | PHYS DOC ---
Past Medical History Past Medical History: Diabetes-Type II, High Cholesterol, Heart Disease, [place], Seizure, Other Additional Past Medical Histor: CARDIAC CONVULSIVE SYNCOPE, Hypomagnesemia Past Surgical History: Coronary Bypass Surgery, Other Additional Past Surgical Histo: "12 THORACIC SURGERIES" Alcohol Use: None Drug Use: None Adult General Chief Complaint Chief Complaint: CHEST PAIN HPI HPI Patient is a 53 year old [f__sex] who presents with [] Review of Systems Review of Systems Constitutional: Denies fever or chills [] Eyes: Denies change in visual acuity, redness, or eye pain [] HENT: Denies nasal congestion or sore throat [] Respiratory: Denies cough or shortness of breath [] Cardiovascular: No additional information not addressed in HPI [] GI: Denies abdominal pain, nausea, vomiting, bloody stools or diarrhea [] : Denies dysuria or hematuria [] Musculoskeletal: Denies back pain or joint pain [] Integument: Denies rash or skin lesions [] Neurologic: Denies headache, focal weakness or sensory changes [] Endocrine: Denies polyuria or polydipsia [] All other systems were reviewed and found to be within normal limits, except as documented in this note. Current Medications Current Medications Current Medications Medications (Trade) Dose Ordered Sig/Boyd Start Time Stop Time Status Last Admin Dose Admin Hydromorphone HCl (Dilaudid) 1 mg 1X ONCE 07/07/18 01:00 07/07/18 01:01 DC 07/07/18 01:19 1 MG Info (CONTRAST GIVEN -- Rx MONITORING) 1 each PRN DAILY PRN 07/06/18 23:45 07/08/18 23:44 Iohexol (Omnipaque 350 Mg/ml) 100 ml 1X ONCE 07/06/18 23:45 07/06/18 23:46 DC 07/07/18 00:00 100 ML Magnesium Sulfate/ Dextrose 100 ml @ 25 mls/hr 1X ONCE 07/06/18 23:30 07/07/18 03:29 07/07/18 00:11 25 MLS/HR Sodium Chloride 1,000 ml @ 1,000 mls/hr 1X ONCE 07/06/18 22:45 07/06/18 23:44 DC 07/06/18 22:58 1,000 MLS/HR Allergies Allergies Allergies Coded Allergies Type Severity Reaction Last Updated Verified Penicillins Allergy Intermediate 01/09/16 Yes ketorolac Allergy Intermediate 01/09/16 Yes codeine Allergy Mild Itching 06/10/18 Yes Physical Exam Physical Exam Constitutional: Well developed, well nourished, no acute distress, non-toxic appearance. [] HENT: Normocephalic, atraumatic, bilateral external ears normal, oropharynx moist, no oral exudates, nose normal. [] Eyes: PERRLA, EOMI, conjunctiva normal, no discharge. [] Neck: Normal range of motion, no tenderness, supple, no stridor. [] Cardiovascular:Heart rate regular rhythm, no murmur [] Lungs & Thorax: Bilateral breath sounds clear to auscultation [] Abdomen: Bowel sounds normal, soft, no tenderness, no masses, no pulsatile masses. [] Skin: Warm, dry, no erythema, no rash. [] Back: No tenderness, no CVA tenderness. [] Extremities: No tenderness, no cyanosis, no clubbing, ROM intact, no edema. [] Neurologic: Alert and oriented X 3, normal motor function, normal sensory functi on, no focal deficits noted. [] Psychologic: Affect normal, judgement normal, mood normal. [] Current Patient Data Vital Signs Vital Signs Date Time Temp Pulse Resp B/P (MAP) Pulse Ox O2 Delivery O2 Flow Rate FiO2 07/07/18 01:19 18 97 07/06/18 23:44 Room Air 07/06/18 22:35 98.5 18 135/72 (93) 98.5 Lab Values Laboratory Tests Test 07/06/18 22:30 White Blood Count 7.3 x10^3/uL (4.0-11.0) Red Blood Count 4.93 x10^6/uL (4.30-5.70) Hemoglobin 13.1 g/dL (13.0-17.5) Hematocrit 39.4 % (39.0-53.0) Mean Corpuscular Volume 80 fL (79-100) Mean Corpuscular Hemoglobin 27 pg (25-35) Mean Corpuscular Hemoglobin Concent 33 g/dL (31-37) Red Cell Distribution Width 15.6 % (11.5-14.5) H Platelet Count 249 x10^3/uL (140-400) Neutrophils (%) (Auto) 48 % (31-73) Lymphocytes (%) (Auto) 35 % (24-48) Monocytes (%) (Auto) 14 % (0-9) H Eosinophils (%) (Auto) 3 % (0-3) Basophils (%) (Auto) 1 % (0-3) Neutrophils # (Auto) 3.5 x10^3uL (1.8-7.7) Lymphocytes # (Auto) 2.5 x10^3/uL (1.0-4.8) Monocytes # (Auto) 1.0 x10^3/uL (0.0-1.1) Eosinophils # (Auto) 0.2 x10^3/uL (0.0-0.7) Basophils # (Auto) 0.0 x10^3/uL (0.0-0.2) Sodium Level 139 mmol/L (136-145) Potassium Level 4.2 mmol/L (3.5-5.1) Chloride Level 103 mmol/L (98-107) Carbon Dioxide Level 27 mmol/L (21-32) Anion Gap 9 (6-14) Blood Urea Nitrogen 23 mg/dL (8-26) Creatinine 0.9 mg/dL (0.7-1.3) Estimated GFR (Cockcroft-Gault) 87.6 BUN/Creatinine Ratio 26 (6-20) H Glucose Level 292 mg/dL (70-99) H Calcium Level 10.0 mg/dL (8.5-10.1) Magnesium Level 1.5 mg/dL (1.8-2.4) L Total Bilirubin 0.3 mg/dL (0.2-1.0) Aspartate Amino Transferase (AST) 12 U/L (15-37) L Alanine Aminotransferase (ALT) 21 U/L (16-63) Alkaline Phosphatase 37 U/L (46-116) L Creatine Kinase 37 U/L (39-308) L Creatine Kinase MB (Mass) 0.9 ng/mL (0.0-3.6) Creatine Kinase MB Relative Index % (0-4) Troponin I Quantitative < 0.017 ng/mL (0.000-0.055) Total Protein 7.0 g/dL (6.4-8.2) Albumin 3.9 g/dL (3.4-5.0) Albumin/Globulin Ratio 1.3 (1.0-1.7) Laboratory Tests 07/06/18 22:30 Laboratory Tests 07/06/18 22:30 EKG EKG @2232 NSR at 85bpm, NO ST elevation, Q wave in III Radiology/Procedures Radiology/Procedures PROCEDURE: CT ANGIOGRAPHY CHEST INDICATION: Chest pain COMPARISON: January 2016 TECHNIQUE: Axial CT images obtained through the chest. Intravenous contrast utilized. Angiogram 3D images processed per protocol. One or more of the following individualized dose reduction techniques were utilized for this examination: 1. Automated exposure control; 2. Adjustment of the mA and/or kV according to patient size; 3. Use of iterative reconstruction technique. FINDINGS: Patient motion limits exam. No evidence of pneumothorax. Right-sided pulmonary nodule measuring up to about 6 mm. Mild groundglass opacities. Thyroid nodules identified. Degenerative changes the spine. Poststernotomy changes. Coronary artery calcific atherosclerosis. Portion of a ascending thoracic aorta obscured by motion but no definite aneurysm or dissection flap in the visualized portions. No embolus seen in the main, right main or left main pulmonary artery. Main pulmonary artery measures up to 38 mm. IMPRESSION: Examination is limited by patient motion. No embolus is seen in the main, right main or left main pulmonary artery but the more peripheral vessels are obscured. Enlarged central pulmonary arteries. Would correlate for possible causes such as pulmonary artery hypertension. Mild groundglass opacities. Could be from hypoventilatory changes although mild edema or small airway inflammation can have this appearance. Thyroid nodule. Nonemergent ultrasound could better evaluate. Calcific atherosclerosis. 6 mm right lung nodule. Similar to minimally increased from prior. Fleischner Society recommendations for solitary solid lung nodule follow up.: In a low risk patient: <6mm - No follow up required. 6-8mm - 6-[address], then CT at 18-24 months. >8mm - CT at 3 months, PET/CT or tissue sampling. In a high risk patient (history of smoking or other known risk factors): <6mm - Follow up CT at 12 months. 6-8mm - 6-[address], then CT at 18-24 months. >8mm - CT at 3 months, PET/CT or tissue sampling. Fleischner Society recommendations for multiple solid lung nodule follow up.: In a low risk patient: <6mm - No follow up required. 6-8mm - 3-[address], then CT at 18-24 months. >8mm - CT at 3-6 months, then at 18-24 months. PET/CT or tissue sampling based on most suspicious nodule. In a high risk patient (history of smoking or other known risk factors): <6mm - Follow up CT at 12 months. 6-8mm - 3-[address], then CT at 18-24 months. >8mm - CT at 3-6 months, PET/CT or tissue sampling option based on most suspicious nodule. Electronically signed by: Isidro Jones MD (07/07/2018 12:21 AM) [facility] Course & Med Decision Making Course & Med Decision Making Pertinent Labs and Imaging studies reviewed. (See chart for details) [] Dragon Disclaimer Dragon Disclaimer This electronic medical record was generated, in whole or in part, using a voice recognition dictation system. Departure Departure Impression: Primary Impression: Chest wall pain Additional Impressions: Hypomagnesemia Seizure disorder Disposition: 01 HOME, SELF-CARE Condition: STABLE Referrals: UNKNOWN PCP NAME (PCP) LAUREN HAZEL MD, PRASHANTH S MD Patient Instructions: Chest Pain (Nonspecific), [id number], Hypomagnesemia, Seizure, Adult, [id number] Additional Instructions: Please follow closely with pain management for further treatment of your chest pain. Problem Qualifiers MALINA MUSTAFA DO Jul 07, 2018 01:50
[2018-07-07 02:00] VITALS: BP 148/82
--- NOTE | 2018-07-07 10:13 | RAD ---
EXAM: CHEST 1 VIEW History: Chest pain COMPARISON: None available. TECHNIQUE: Single portable radiograph of the chest FINDINGS: The cardiac silhouette is unremarkable. The lungs are clear bilaterally. The costophrenic sulci are clear and well demarcated. IMPRESSION: No radiographic evidence of an acute cardiopulmonary process.
--- NOTE | 2018-07-07 13:22 | EKG ---
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
== END 2018-07-07 01:59 | disposition home or self-care (01) ==
LOC: ER 22:27
DX: R07.89 Other chest pain (principal); G40.909 Epilepsy, unspecified, not intractable, without status epilepticus; E83.42 Hypomagnesemia; E78.00 Pure hypercholesterolemia, unspecified; E11.9 Type 2 diabetes mellitus without complications; I25.2 Old myocardial infarction; Z86.79 Personal history of other diseases of the circulatory system; Z95.1 Presence of aortocoronary bypass graft; Z98.890 Other specified postprocedural states; Z88.0 Allergy status to penicillin; Z88.5 Allergy status to narcotic agent; Z88.6 Allergy status to analgesic agent
CPT/HCPCS: 36415; 71045; 71275; 80053; 82553; 83735; 84484; 85025; 93005; 96365; 96375; 96376; 99285; J1170; J3475; J7030; Q9967

== ENCOUNTER 2018-07-07 22:12 | Emergency (ER) | payer OTHER ==
[~2018-07-07] VITALS: Ht 177.8 cm; Wt 88.5 kg
[2018-07-07] MEDS ORDERED: HYDROmorphone 2 MG/ML VIAL IV ONE (23:00)
--- NOTE | 2018-07-07 23:13 | PHYS DOC ---
Past Medical History Past Medical History: Diabetes-Type II, High Cholesterol, Heart Disease, [place], Seizure, Other Additional Past Medical Histor: CARDIAC CONVULSIVE SYNCOPE, Hypomagnesemia Past Surgical History: Coronary Bypass Surgery, Other Additional Past Surgical Histo: "12 THORACIC SURGERIES" Alcohol Use: None Drug Use: None Adult General Chief Complaint Chief Complaint: Palpitations HPI HPI Patient is a 53 year old male presenting with palpitations he says he has PVCs the last 2 beats at a time every 20 minutes they wake him up he feels like he is going to from this he is incredibly anxious about this complaint. Patient has chronic chest pain no changes recently but he said it is severe uncontroleld by home meds. patient has appointment with wool tamper and pain control tomorrow which is excellent. Patient was just seen yesterday for chest pain as well and had a essentially negative PE workup Review of Systems Review of Systems Constitutional: Denies fever or chills [] Eyes: Denies change in visual acuity, redness, or eye pain [] HENT: D : Neurologic: Denies headache, focal weakness or sensory changes [] Endocrine: Denies polyuria or polydipsia [] All other systems were reviewed and found to be within normal limits, except as documented in this note. Current Medications Current Medications Current Medications Medications (Trade) Dose Ordered Sig/Boyd Start Time Stop Time Status Last Admin Dose Admin Heparin Sodium (Porcine) (Hep Lock Adult) 500 unit 1X ONCE 07/08/18 00:00 07/08/18 00:01 07/07/18 23:50 500 UNIT Hydromorphone HCl (Dilaudid) 2 mg 1X ONCE 07/07/18 23:00 07/07/18 23:01 DC 07/07/18 23:39 2 MG Ondansetron HCl (Zofran) 4 mg 1X ONCE 07/07/18 23:30 07/07/18 23:31 DC 07/07/18 23:34 4 MG Allergies Allergies Allergies Coded Allergies Type Severity Reaction Last Updated Verified Penicillins Allergy Intermediate 01/09/16 Yes ketorolac Allergy Intermediate 01/09/16 Yes codeine Allergy Mild Itching 06/10/18 Yes Physical Exam Physical Exam Constitutional: Well developed, well nourished, no acute distress, non-toxic appearance. [] HENT: Normocephalic, atraumatic, bilateral external ears normal, oropharynx moist, no oral exudates, nose normal. [] Eyes: PERRLA, EOMI, conjunctiva normal, no discharge. [] Neck: Normal range of motion, no tenderness, supple, no stridor. [] Cardiovascular:Heart rate regular rhythm, no murmur []patient does not normally appearing chest wall old per my previous examinations of this patient Lungs & Thorax: Bilateral breath sounds clear to auscultation [] Abdomen: Bowel sounds normal, soft, no tenderness, no masses, no pulsatile masses. [] Skin: Warm, dry, no erythema, no rash. [] Back: No tenderness, no CVA tenderness. [] Extremities: No tenderness, no cyanosis, no clubbing, ROM intact, no edema. [] Neurologic: Alert and oriented X 3, normal motor function, normal sensory function, no focal deficits noted. [] Psychologic: Affect normal, judgement normal, mood normal. [] Current Patient Data Vital Signs Vital Signs Date Time Temp Pulse Resp B/P (MAP) Pulse Ox O2 Delivery O2 Flow Rate FiO2 07/07/18 23:39 20 98 Room Air 07/07/18 22:51 92 130/88 (102) 07/07/18 22:15 98.0 98.0 Lab Values Laboratory Tests Test 07/07/18 22:58 White Blood Count 9.1 x10^3/uL (4.0-11.0) Red Blood Count 5.00 x10^6/uL (4.30-5.70) Hemoglobin 13.1 g/dL (13.0-17.5) Hematocrit 40.1 % (39.0-53.0) Mean Corpuscular Volume 80 fL (79-100) Mean Corpuscular Hemoglobin 26 pg (25-35) Mean Corpuscular Hemoglobin Concent 33 g/dL (31-37) Red Cell Distribution Width 15.6 % (11.5-14.5) H Platelet Count 273 x10^3/uL (140-400) Neutrophils (%) (Auto) 61 % (31-73) Lymphocytes (%) (Auto) 29 % (24-48) Monocytes (%) (Auto) 8 % (0-9) Eosinophils (%) (Auto) 1 % (0-3) Basophils (%) (Auto) 0 % (0-3) Neutrophils # (Auto) 5.5 x10^3uL (1.8-7.7) Lymphocytes # (Auto) 2.6 x10^3/uL (1.0-4.8) Monocytes # (Auto) 0.8 x10^3/uL (0.0-1.1) Eosinophils # (Auto) 0.1 x10^3/uL (0.0-0.7) Basophils # (Auto) 0.0 x10^3/uL (0.0-0.2) Sodium Level 141 mmol/L (136-145) Potassium Level 4.0 mmol/L (3.5-5.1) Chloride Level 102 mmol/L (98-107) Carbon Dioxide Level 27 mmol/L (21-32) Anion Gap 12 (6-14) Blood Urea Nitrogen 14 mg/dL (8-26) Creatinine 1.6 mg/dL (0.7-1.3) H Estimated GFR (Cockcroft-Gault) 45.1 BUN/Creatinine Ratio 9 (6-20) Glucose Level 235 mg/dL (70-99) H Calcium Level 9.3 mg/dL (8.5-10.1) Magnesium Level 1.7 mg/dL (1.8-2.4) L Total Bilirubin 0.5 mg/dL (0.2-1.0) Aspartate Amino Transferase (AST) 12 U/L (15-37) L Alanine Aminotransferase (ALT) 21 U/L (16-63) Alkaline Phosphatase 33 U/L (46-116) L Troponin I Quantitative < 0.017 ng/mL (0.000-0.055) Total Protein 6.7 g/dL (6.4-8.2) Albumin 3.8 g/dL (3.4-5.0) Albumin/Globulin Ratio 1.3 (1.0-1.7) Laboratory Tests 07/07/18 22:58 Laboratory Tests 07/07/18 22:58 EKG EKG []EKG shows normal sinus rhythm rate of 99 there is some nonspecific ST changes noted inferiorly and also in V6 overall similar to yesterday's EKG no STEMI Radiology/Procedures Radiology/Procedures [] Course & Med Decision Making Course & Med Decision Making Pertinent Labs and Imaging studies reviewed. 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 Here for palpitations he says he has PVCs he can feel them he asked the engineering technician parking to wait until a PVC popped up so that it could be recorded on EKG. She waited it never popped up at the moment patient is on the cardiac care unit nurse have not seen any abnormal rhythms Recheck electrolytes in the emergency room troponin as well I did tell the patient I would give one dose of intravenous Dilaudid while he was waiting for his test results but it is very important for him to follow-up with pain management for further and definitive care Dragon Disclaimer Dragon Disclaimer This electronic medical record was generated, in whole or in part, using a voice recognition dictation system. Departure Departure Impression: Primary Impression: Palpitations Disposition: 01 HOME, SELF-CARE Condition: STABLE Referrals: UNKNOWN PCP NAME (PCP) SARAI SCHWARZ MD Jul 07, 2018 23:13
[2018-07-07 23:25] LABS: CALCIUM 9.3 mg/dL (8.5-10.1); CREATININE 1.6 mg/dL (0.7-1.3); GFR 45.1
[2018-07-07 23:29] LABS: ALBUMIN 3.8 g/dL (3.4-5.0); ALBUMIN/GLOBULIN RATIO 1.3 (1.0-1.7); MAGNESIUM 1.7 mg/dL (1.8-2.4); TOTAL BILIRUBIN 0.5 mg/dL (0.2-1.0); TOTAL PROTEIN 6.7 g/dL (6.4-8.2)
[2018-07-07] MEDS ORDERED: ONDANSETRON PF 4 MG/2 ML VIAL. IV ONE (23:30)
[2018-07-07 23:44] LABS: BASO % 0 % (0-3); EOS # 0.1 x10^3/uL (0.0-0.7); EOS % 1 % (0-3); HEMATOCRIT 40.1 % (39.0-53.0); HEMOGLOBIN 13.1 g/dL (13.0-17.5); LYMPH # 2.6 x10^3/uL (1.0-4.8); LYMPH % 29 % (24-48); MEAN CORPUSCULAR HEMOGLOBIN 26 pg (25-35); MEAN CORPUSCULAR HGB CONC 33 g/dL (31-37); MEAN CORPUSCULAR VOLUME 80 fL (79-100); MONO # 0.8 x10^3/uL (0.0-1.1); MONO % 8 % (0-9); NEUT # 5.5 x10^3uL (1.8-7.7); NEUT % 61 % (31-73); PLATELET COUNT 273 x10^3/uL (140-400); RED CELL DISTRIBUTION WIDTH 15.6 % (11.5-14.5); WHITE BLOOD COUNT 9.1 x10^3/uL (4.0-11.0)
[2018-07-07] MEDS ORDERED: HEPARIN PF 500 UNIT/5 ML DISP.SYRIN. IV ONE (23:45)
[2018-07-07 23:51] VITALS: BP 132/79
[2018-07-08] MEDS ORDERED: HEPARIN PF 500 UNIT/5 ML DISP.SYRIN. IV ONE
--- NOTE | 2018-07-08 06:40 | EKG ---
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
== END 2018-07-08 00:05 | disposition home or self-care (01) ==
LOC: ER 22:12
DX: R00.2 Palpitations (principal); I11.9 Hypertensive heart disease without heart failure; E11.9 Type 2 diabetes mellitus without complications; E78.00 Pure hypercholesterolemia, unspecified; I25.2 Old myocardial infarction; Z95.1 Presence of aortocoronary bypass graft; Z88.0 Allergy status to penicillin; Z88.5 Allergy status to narcotic agent; Z88.6 Allergy status to analgesic agent
CPT/HCPCS: 36415; 80053; 83735; 84484; 85025; 93005; 96374; 96375; 99285; J1170; J2405

== ENCOUNTER 2018-07-13 22:14 | Emergency (ER) | payer OTHER ==
[~2018-07-13] VITALS: Ht 177.8 cm; Wt 83.9 kg
[2018-07-13 23:06] LABS: BASO % 1 % (0-3); EOS # 0.2 x10^3/uL (0.0-0.7); EOS % 2 % (0-3); HEMOGLOBIN 13.6 g/dL (13.0-17.5); LYMPH # 2.7 x10^3/uL (1.0-4.8); LYMPH % 28 % (24-48); MEAN CORPUSCULAR HEMOGLOBIN 27 pg (25-35); MEAN CORPUSCULAR HGB CONC 33 g/dL (31-37); MEAN CORPUSCULAR VOLUME 80 fL (79-100); MONO # 1.3 x10^3/uL (0.0-1.1); MONO % 14 % (0-9); NEUT # 5.3 x10^3uL (1.8-7.7); NEUT % 56 % (31-73); PLATELET COUNT 252 x10^3/uL (140-400); RED BLOOD COUNT 5.13 x10^6/uL (4.30-5.70); RED CELL DISTRIBUTION WIDTH 15.5 % (11.5-14.5); WHITE BLOOD COUNT 9.5 x10^3/uL (4.0-11.0)
--- NOTE | 2018-07-13 23:16 | PHYS DOC ---
Past Medical History Past Medical History: Diabetes-Type II, High Cholesterol, Heart Disease, [place], Seizure, Other Additional Past Medical Histor: CARDIAC CONVULSIVE SYNCOPE, Hypomagnesemia Past Surgical History: Coronary Bypass Surgery, Other Additional Past Surgical Histo: "12 THORACIC SURGERIES" Alcohol Use: None Drug Use: None Adult General Chief Complaint Chief Complaint: SEIZURE HPI HPI 53-year-old male with a history of hypomagnesemia with accompanying seizures presents after another "tonic clonic" event. He states he and his were out on a date night when he had this event. He states after these events he is in severe pain and requires IV pain medicine. Was seen earlier today at [facility] and given 2 g of magnesium. He was also infused with 4 g of magnesium earlier today. Patient has a copy of a pain management agreement from his pain clinic.[] Review of Systems Review of Systems Constitutional: Denies fever or chills [] Eyes: Denies change in visual acuity, redness, or eye pain [] HENT: Denies nasal congestion or sore throat [] Respiratory: Denies cough or shortness of breath [] Cardiovascular: No additional information not addressed in HPI [] GI: Denies abdominal pain, nausea, vomiting, bloody stools or diarrhea [] : Denies dysuria or hematuria [] Musculoskeletal: Reports back pain[] Integument: Denies rash or skin lesions [] Neurologic: Reports seizure-like activity[] Endocrine: Denies polyuria or polydipsia [] All other systems were reviewed and found to be within normal limits, except as documented in this note. Allergies Allergies Allergies Coded Allergies Type Severity Reaction Last Updated Verified Penicillins Allergy Intermediate 01/09/16 Yes ketorolac Allergy Intermediate 01/09/16 Yes codeine Allergy Mild Itching 06/10/18 Yes Physical Exam Physical Exam Constitutional: Well developed, well nourished, patient is extremely talkative and does not appear to be in any distress at all. His vital signs were not such that would indicate any acute pain syndrome[] HENT: Normocephalic, atraumatic, bilateral external ears normal, oropharynx moist, no oral exudates, nose normal. [] Eyes: PERRLA, EOMI, conjunctiva normal, no discharge. [] Neck: Normal range of motion, no tenderness, supple, no stridor. [] Cardiovascular:Heart rate regular rhythm, no murmur, port right upper chest [] Lungs & Thorax: Bilateral breath sounds clear to auscultation [] Abdomen: Bowel sounds normal, soft, no tenderness, no masses, no pulsatile masses. [] Extremities: No tenderness, no cyanosis, no clubbing, ROM intact, no edema. [] Neurologic: Alert and oriented X 3, normal motor function, no focal deficits noted. [] Psychologic: Angry affect[] EKG EKG [] Radiology/Procedures Radiology/Procedures [] Course & Med Decision Making Course & Med Decision Making Pertinent Labs and Imaging studies reviewed. (See chart for details) [ED course: Evaluation reveals a 53-year-old male with classic opioid seeking behavior. When I informed the patient that he did not appear to be in any pain in his vital signs would indicate that he was in no significant discomfort he became highly agitated and provided we with multiple excuses why his heart rate would not be elevated with 10 out of 10 pain. When I informed the patient that he would not be receiving any IV narcotic pain medicine he became angry and elected to leave. While I do believe that he has problems with his magnesium I suspect the majority of his issues are related to the abuse of his chronic pain.] Dragon Disclaimer Dragon Disclaimer This electronic medical record was generated, in whole or in part, using a voice recognition dictation system. Departure Departure Impression: Primary Impression: Drug-seeking behavior Additional Impression: Exacerbation of chronic back pain Disposition: HOME, SELF-CARE Condition: STABLE Referrals: UNKNOWN PCP NAME (PCP) Patient Instructions: Hypomagnesemia Additional Instructions: You will need to follow with her primary care physician this week for recheck. Problem Qualifiers ISAAC BERNAL DO Jul 13, 2018 23:16
[2018-07-13 23:19] LABS: CALCIUM 9.7 mg/dL (8.5-10.1); CREATININE 0.8 mg/dL (0.7-1.3); GFR 100.4
[2018-07-13 23:24] LABS: ALBUMIN 3.8 g/dL (3.4-5.0); ALBUMIN/GLOBULIN RATIO 1.3 (1.0-1.7); MAGNESIUM 1.8 mg/dL (1.8-2.4); TOTAL BILIRUBIN 0.3 mg/dL (0.2-1.0); TOTAL PROTEIN 6.8 g/dL (6.4-8.2)
== END 2018-07-13 23:05 | disposition home or self-care (01) ==
LOC: ER 22:14
DX: G89.29 Other chronic pain (principal); M54.9 Dorsalgia, unspecified; Z72.89 Other problems related to lifestyle; E83.42 Hypomagnesemia; E11.9 Type 2 diabetes mellitus without complications; E78.00 Pure hypercholesterolemia, unspecified; I11.9 Hypertensive heart disease without heart failure; I25.2 Old myocardial infarction; Z95.1 Presence of aortocoronary bypass graft; Z98.890 Other specified postprocedural states; Z88.0 Allergy status to penicillin; Z88.5 Allergy status to narcotic agent; Z88.6 Allergy status to analgesic agent
CPT/HCPCS: 36415; 80053; 83735; 85025; 99284

== ENCOUNTER 2018-08-04 21:30 | Emergency (ER) | payer OTHER ==
[~2018-08-04] VITALS: Ht 182.9 cm; Wt 90.7 kg
[~2018-08-04 21:30] MED LIST: ASPI325T8 PO; ATORVASTATIN CA80 MG PO; CLON0.1T PO; CLOP75TA57 PO; CYCL10TA2 PO; FENO145T PO; INSU100C4 SQ; INSU100V37 SQ; LISI-338 PO; METF10007 PO; METO100T7 PO; NICO1PAT21 TP; OXYC15TA PO; magnesium IV
[2018-08-04] MEDS ORDERED: IV NORMAL SALINE 1000ML BAG 1,000 ML IV ONE (21:45)
[2018-08-04] MEDS ORDERED: HYDROmorphone 2 MG/ML VIAL IV ONE ×3 (21:45→23:45)
[2018-08-04 21:50] LABS: BASO # 0.1 x10^3/uL (0.0-0.2); BASO % 1 % (0-3); EOS % 0 % (0-3); HEMATOCRIT 42.4 % (39.0-53.0); HEMOGLOBIN 14.1 g/dL (13.0-17.5); LYMPH # 2.6 x10^3/uL (1.0-4.8); LYMPH % 27 % (24-48); MEAN CORPUSCULAR HEMOGLOBIN 26 pg (25-35); MEAN CORPUSCULAR HGB CONC 33 g/dL (31-37); MEAN CORPUSCULAR VOLUME 79 fL (79-100); MONO # 0.8 x10^3/uL (0.0-1.1); MONO % 8 % (0-9); NEUT % 64 % (31-73); PLATELET COUNT 248 x10^3/uL (140-400); RED BLOOD COUNT 5.35 x10^6/uL (4.30-5.70); RED CELL DISTRIBUTION WIDTH 15.6 % (11.5-14.5); WHITE BLOOD COUNT 9.5 x10^3/uL (4.0-11.0)
[2018-08-04 21:58] LABS: PROTHROMBIN TIME PATIENT 13.9 SEC (11.7-14.0)
[2018-08-04 22:02] LABS: CALCIUM 9.7 mg/dL (8.5-10.1); CREATININE 0.7 mg/dL (0.7-1.3); GFR 117.1
[2018-08-04 22:08] LABS: ALBUMIN 4.2 g/dL (3.4-5.0); ALBUMIN/GLOBULIN RATIO 1.4 (1.0-1.7); MAGNESIUM 1.4 mg/dL (1.8-2.4); TOTAL BILIRUBIN 0.5 mg/dL (0.2-1.0); TOTAL PROTEIN 7.2 g/dL (6.4-8.2)
[2018-08-04 22:32] LABS: CREATINE KINASE 38 U/L (39-308)
[2018-08-04] MEDS ORDERED: ORPHENADRINE CITRATE 60 MG/2 ML VIAL. IM ONE (22:45)
[2018-08-04] MEDS ORDERED: ORPHENADRINE CITRATE 60 MG/2 ML VIAL. IV ONE (23:00)
[2018-08-04] MEDS ORDERED: MAGNESIUM SULFATE 4GM 100 ML IV ONE (23:00)
[2018-08-04 23:30] VITALS: BP 121/69
[2018-08-04 23:33] LABS: BILIRUBIN,URINE NEGATIVE (NEG); CLARITY,URINE CLEAR; COLOR,URINE YELLOW; NITRITE,URINE NEGATIVE (NEG); PROTEIN,URINE NEGATIVE (NEG-TRACE); UROBILINOGEN,URINE 0.2 mg/dL (0.2 mg/dL)
[2018-08-04] MEDS ORDERED: ONDANSETRON PF 4 MG/2 ML VIAL. IV ONE (23:45)
[2018-08-04 23:49] LABS: BACTERIA,URINE 0 /HPF (0-FEW); RBC,URINE 0 /HPF (0-2); WBC,URINE 0 /HPF (0-4)
--- NOTE | 2018-08-04 23:54 | PHYS DOC ---
Past Medical History Past Medical History: Diabetes-Type II, High Cholesterol, Heart Disease, [place], Seizure, Other Additional Past Medical Histor: CARDIAC CONVULSIVE SYNCOPE, Hypomagnesemia Past Surgical History: Coronary Bypass Surgery, Other Additional Past Surgical Histo: "12 THORACIC SURGERIES" Alcohol Use: None Drug Use: None Adult General Chief Complaint Chief Complaint: SEIZURE HPI HPI Patient is a 53 year old [f__sex] who presents with [] Review of Systems Review of Systems Constitutional: Denies fever or chills [] Eyes: Denies change in visual acuity, redness, or eye pain [] HENT: Denies nasal congestion or sore throat [] Respiratory: Denies cough or shortness of breath [] Cardiovascular: No additional information not addressed in HPI [] GI: Denies abdominal pain, nausea, vomiting, bloody stools or diarrhea [] : Denies dysuria or hematuria [] Musculoskeletal: Denies back pain or joint pain [] Integument: Denies rash or skin lesions [] Neurologic: Denies headache, focal weakness or sensory changes [] Endocrine: Denies polyuria or polydipsia [] All other systems were reviewed and found to be within normal limits, except as documented in this note. Current Medications Current Medications Current Medications Medications (Trade) Dose Ordered Sig/Boyd Start Time Stop Time Status Last Admin Dose Admin Hydromorphone HCl (Dilaudid) 2 mg 1X ONCE 08/05/18 00:15 08/05/18 00:16 DC 08/05/18 00:12 2 MG Magnesium Sulfate/ Dextrose 100 ml @ 25 mls/hr 1X ONCE 08/04/18 23:00 08/05/18 00:33 DC 08/04/18 22:53 25 MLS/HR Ondansetron HCl (Zofran) 4 mg 1X ONCE 08/04/18 23:45 08/04/18 23:46 DC 08/04/18 23:37 4 MG Orphenadrine Citrate (Norflex) 60 mg 1X ONCE 08/04/18 23:00 08/04/18 23:01 DC 08/04/18 22:52 60 MG Sodium Chloride 1,000 ml @ 1,000 mls/hr 1X ONCE 08/04/18 21:45 08/04/18 22:44 DC 08/04/18 21:50 1,000 MLS/HR Allergies Allergies Allergies Coded Allergies Type Severity Reaction Last Updated Verified Penicillins Allergy Intermediate 01/09/16 Yes ketorolac Allergy Intermediate 01/09/16 Yes codeine Allergy Mild Itching 06/10/18 Yes Physical Exam Physical Exam Constitutional: Well developed, well nourished, no acute distress, non-toxic appearance. [] HENT: Normocephalic, atraumatic, bilateral external ears normal, oropharynx moist, no oral exudates, nose normal. [] Eyes: PERRLA, EOMI, conjunctiva normal, no discharge. [] Neck: Normal range of motion, no tenderness, supple, no stridor. [] Cardiovascular:Heart rate regular rhythm, no murmur [] Lungs & Thorax: Bilateral breath sounds clear to auscultation [] Abdomen: Bowel sounds normal, soft, no tenderness, no masses, no pulsatile masses. [] Skin: Warm, dry, no erythema, no rash. [] Back: No tenderness, no CVA tenderness. [] Extremities: No tenderness, no cyanosis, no clubbing, ROM intact, no edema. [] Neurologic: Alert and oriented X 3, normal motor function, normal sensory fun ction, no focal deficits noted. [] Psychologic: Affect normal, judgement normal, mood normal. [] Current Patient Data Vital Signs Vital Signs Date Time Temp Pulse Resp B/P (MAP) Pulse Ox O2 Delivery O2 Flow Rate FiO2 08/05/18 00:12 18 98 Room Air 08/04/18 23:30 80 08/04/18 21:30 98.4 111/72 (85) 98.4 Lab Values Laboratory Tests Test 08/04/18 21:40 08/04/18 23:25 White Blood Count 9.5 x10^3/uL (4.0-11.0) Red Blood Count 5.35 x10^6/uL (4.30-5.70) Hemoglobin 14.1 g/dL (13.0-17.5) Hematocrit 42.4 % (39.0-53.0) Mean Corpuscular Volume 79 fL (79-100) Mean Corpuscular Hemoglobin 26 pg (25-35) Mean Corpuscular Hemoglobin Concent 33 g/dL (31-37) Red Cell Distribution Width 15.6 % (11.5-14.5) H Platelet Count 248 x10^3/uL (140-400) Neutrophils (%) (Auto) 64 % (31-73) Lymphocytes (%) (Auto) 27 % (24-48) Monocytes (%) (Auto) 8 % (0-9) Eosinophils (%) (Auto) 0 % (0-3) Basophils (%) (Auto) 1 % (0-3) Neutrophils # (Auto) 6.0 x10^3uL (1.8-7.7) Lymphocytes # (Auto) 2.6 x10^3/uL (1.0-4.8) Monocytes # (Auto) 0.8 x10^3/uL (0.0-1.1) Eosinophils # (Auto) 0.0 x10^3/uL (0.0-0.7) Basophils # (Auto) 0.1 x10^3/uL (0.0-0.2) Prothrombin Time 13.9 SEC (11.7-14.0) Prothrombin Time INR 1.1 (0.8-1.1) PTT 28 SEC (24-38) Sodium Level 143 mmol/L (136-145) Potassium Level 4.0 mmol/L (3.5-5.1) Chloride Level 104 mmol/L (98-107) Carbon Dioxide Level 25 mmol/L (21-32) Anion Gap 14 (6-14) Blood Urea Nitrogen 14 mg/dL (8-26) Creatinine 0.7 mg/dL (0.7-1.3) Estimated GFR (Cockcroft-Gault) 117.1 BUN/Creatinine Ratio 20 (6-20) Glucose Level 200 mg/dL (70-99) H Lactic Acid Level 3.4 mmol/L (0.4-2.0) H Calcium Level 9.7 mg/dL (8.5-10.1) Magnesium Level 1.4 mg/dL (1.8-2.4) L Total Bilirubin 0.5 mg/dL (0.2-1.0) Aspartate Amino Transferase (AST) 14 U/L (15-37) L Alanine Aminotransferase (ALT) 25 U/L (16-63) Alkaline Phosphatase 31 U/L (46-116) L Creatine Kinase 38 U/L (39-308) L Creatine Kinase MB (Mass) 0.9 ng/mL (0.0-3.6) Creatine Kinase MB Relative Index % (0-4) Troponin I Quantitative < 0.017 ng/mL (0.000-0.055) WI-Fjl-U-Type Natriuretic Peptide 140 pg/mL (0-124) H Total Protein 7.2 g/dL (6.4-8.2) Albumin 4.2 g/dL (3.4-5.0) Albumin/Globulin Ratio 1.4 (1.0-1.7) Lipase 97 U/L (73-393) Urine Collection Type Unknown Urine Color Yellow Urine Clarity Clear Urine pH 6.0 Urine Specific [place] 1.025 Urine Protein Negative mg/dL (NEG-TRACE) Urine Glucose (UA) 500 mg/dL (NEG) Urine Ketones (Stick) Negative mg/dL (NEG) Urine Blood Negative (NEG) Urine Nitrite Negative (NEG) Urine Bilirubin Negative (NEG) Urine Urobilinogen Dipstick 0.2 mg/dL (0.2 mg/dL) Urine Leukocyte Esterase Negative (NEG) Urine RBC 0 /HPF (0-2) Urine WBC 0 /HPF (0-4) Urine Squamous Epithelial Cells None /LPF Urine Bacteria 0 /HPF (0-FEW) Urine Mucus Marked /LPF Laboratory Tests 08/04/18 21:40 Laboratory Tests 08/04/18 21:40 EKG EKG 08/04/18 at 2139: Normal sinus tachycardia at [address] segment elevation. [] Radiology/Procedures Radiology/Procedures [] Course & Med Decision Making Course & Med Decision Making Pertinent Labs and Imaging studies reviewed. (See chart for details) [] Dragon Disclaimer Dragon Disclaimer This electronic medical record was generated, in whole or in part, using a voice recognition dictation system. Departure Departure Impression: Primary Impression: Seizure disorder Additional Impressions: Chest wall pain Hypomagnesemia Lactic acidosis Disposition: 01 HOME, SELF-CARE Condition: STABLE Referrals: DADA BROWN MD (PCP) ORLANDO MOORE MD, PRASHANTH S MD Patient Instructions: Chest Wall Pain, [id number], Hypomagnesemia, Lactic Acid, Lactate, Seizure, Adult, [id number] Scripts Orphenadrine Citrate (ORPHENADRINE CITRATE) 100 Mg Tablet.er 100 MG PO BID, #14 Prov: MALINA MUSTAFA DO 08/04/18 Problem Qualifiers MALINA MUSTAFA DO Aug 04, 2018 23:54
[2018-08-04] MEDS ORDERED: ORPH100T PO (23:56)
[2018-08-05] MEDS ORDERED: HYDROmorphone 2 MG/ML VIAL IV ONE (00:15)
--- NOTE | 2018-08-05 07:02 | EKG ---
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
--- NOTE | 2018-08-05 08:08 | RAD ---
Chest radiograph 08/04/2018 9:33 PM INDICATION: Chronic chest pain COMPARISON: July 06, 2018 TECHNIQUE: Portable upright frontal view of the chest is provided. FINDINGS: The cardiomediastinal silhouette is within normal limits. Stable right chest wall lead. There are no pleural effusions. There is no pulmonary vascular congestion. There is no pneumothorax. The lungs are clear. No significant osseous abnormality is identified. IMPRESSION: No acute cardiopulmonary process. Electronically signed by: Viviane Hardy MD (08/05/2018 8:05 AM) [id number]
== END 2018-08-05 00:25 | disposition home or self-care (01) ==
LOC: ER 21:30
DX: G40.909 Epilepsy, unspecified, not intractable, without status epilepticus (principal); R07.89 Other chest pain; E83.42 Hypomagnesemia; E87.2 Acidosis; E78.00 Pure hypercholesterolemia, unspecified; I25.2 Old myocardial infarction; Z86.79 Personal history of other diseases of the circulatory system; Z95.5 Presence of coronary angioplasty implant and graft; Z88.0 Allergy status to penicillin; Z88.5 Allergy status to narcotic agent; Z88.6 Allergy status to analgesic agent
CPT/HCPCS: 36415; 71045; 80053; 81001; 82553; 83605; 83690; 83735; 83880; 84484; 85025; 85610; 85730; 93005; 96365; 96375; 96376; 99285; J1170; J2360; J2405; J3475; J7030

== ENCOUNTER 2018-08-26 09:32 | Emergency (ER) | payer SELFPAY ==
[~2018-08-26] VITALS: Ht 177.8 cm; Wt 83.7 kg
[~2018-08-26 09:32] MED LIST changes: +ORPH100T PO
[2018-08-26 09:40] VITALS: BP 125/73
--- NOTE | 2018-08-26 10:05 | PHYS DOC ---
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 He is also complaining of right shoulder pain. All his symptoms begun at 0300. Patient continues to ask for pain medicine. He states he was sent to the ED today by Dr. Nascimento for his right shoulder pain and right hand swelling, he also states he was sent to the ED today by cardiothoracic surgeon because he has mild Union of the sternum. He continues to request pain medicine. Informed patient considering his complaints i would like to do a cardiac workup which includes giving him aspirin for pain but will not give him any narcotics considering there is no indication for narcotics at this point. Patient states aspirin does not work for him. Offered Toradol. He states he is allergic to it. Offered him nonnarcotic medications. He states he states if he is not going to sit in the ED and we are not going to give him pain medicine he will leave. Informed i will order a cardiac workup with no narcotics, i will call Dr. Nascimento as well as Dr. Pina and talk to them too. Patient continues requesting pain medicine. He is very angry. He states removing on his monitoring devices he is refusing to answer nurses questions. Walked out of the room. Left patient with RN. Patient refused x-rays. [facility] This is a 53-year-old male patient presenting for pain as noted above. Ktracs shows he has extensive narcotic use. Dr. Moore went to talk to patient. He Walked out AMA I called Dr. Nascimento he states he saw patient a long time for Dupuytren contractures to the right hand he was living in [facility]. He states he referred him to a hand surgeon and has no connection with him anymore. Spoke with Dr. Pina he states he has never seen patient and does not know anything about him. (NACHO CHI APRN) Review of Systems Review of Systems Constitutional: Denies fever or chills [] Eyes: Denies change in visual acuity, redness, or eye pain [] HENT: Denies nasal congestion or sore throat [] Respiratory: Denies cough or shortness of breath [] Cardiovascular: reports chest pain GI: Denies abdominal pain, nausea, vomiting, bloody stools or diarrhea [] : Denies dysuria or hematuria [] Musculoskeletal: Denies back pain or joint pain [] Integument: Denies rash or skin lesions [] Neurologic: Denies headache, focal weakness or sensory changes [] Psych:upset All other systems were reviewed and found to be within normal limits, except as documented in this note. (NACHO CHI APRN) Current Medications Current Medications Current Medications Medications (Trade) Dose Ordered Sig/Boyd Start Time Stop Time Status Last Admin Dose Admin Aspirin (Avani Aspirin) 325 mg 1X ONCE 08/26/18 10:30 08/26/18 10:31 (ARMANDO MOORE MD) Allergies Allergies Allergies Coded Allergies Type Severity Reaction Last Updated Verified Penicillins Allergy Intermediate 01/09/16 Yes ketorolac Allergy Intermediate 01/09/16 Yes codeine Allergy Mild Itching 06/10/18 Yes (ARMANDO MOORE MD) Physical Exam Physical Exam Constitutional: Well developed, well nourished, no acute distress, non-toxic appearance. [] HENT: Normocephalic, atraumatic, bilateral external ears normal, oropharynx moist, no oral exudates, nose normal. [] Eyes: PERRLA, EOMI, conjunctiva normal, no discharge. [] Neck: Normal range of motion, no tenderness, supple, no stridor. [] Cardiovascular:old healed surgical scar noted midline chest. Lungs & Thorax: No performed Abdomen: Ventral hernia noted on the midline abdomen. Bowel sounds normal, soft, no tenderness, no masses, no pulsatile masses. [] Skin: Warm, dry, no erythema, no rash. [] Back: No tenderness, no CVA tenderness. [] Extremities: No tenderness, no cyanosis, no clubbing, ROM intact, no edema. [] Neurologic: Alert and oriented X 3, normal motor function, normal sensory function, no focal deficits noted. [] Psychologic: very angry appearing. Aggressive verbally. (NACHO CHI APRN) Current Patient Data Vital Signs Vital Signs Date Time Temp Pulse Resp B/P (MAP) Pulse Ox O2 Delivery O2 Flow Rate FiO2 08/26/18 09:40 98.1 101 20 125/73 (90) 97 Room Air 98.1 (ARMANDO MOORE MD) EKG EKG [address] Moore sinsu rhythm HR 99 no STEMI[] (NACHO CHI APRN) Radiology/Procedures Radiology/Procedures [] (NACHO CHI APRN) Impressions: 10:20 AM: The patient presented to the emergency department and requested to see the attending physician. He has a history of chronic pain in his sternum secondary t o malunion, which he blames on a clamp being "his chest after surgery. He is on oxycodone 20 mg 3 times daily, which was last filled on 08/12. He admits to taking this medication, as prescribed. He states that he has had worsening of his chronic chest discomfort, as well as exacerbation of right shoulder pain. He has a history of numerous prescribers prescribing the patient narcotic pain medication, as evidenced by review of KTRACS. The nurse practitioner initially offered the patient nonnarcotic management, which the patient became upset. He states that he called to new physicians, Dr. Nascimento from orthopedics, and Dr. Pina, from thoracic surgery, whom he is scheduled to see in the coming days, to resolve his chronic issues. I examined the patient, shoulder exam appears unremarkable, without any warmth, erythema, or significant swelling. He has normal pulses. He does have a scar in his anterior chest, with otherwise clear lungs. I discussed what I can offer the patient has an emergency physician in emergency department. I discussed that I would like to evaluate the patient for emergent cause of his chest pain, and discussed nonnarcotic alternatives to manage his pain. The patient came belligerent and verbally aggressive, stating that any nonnarcotic management does not work, and he insisted on narcotic medication, which I explained would not be appropriate to manage his chronic pain in the emergency department, especially as he is already on 60 mg of oxycodone daily. The patient became upset and eloped from the emergency department. (ARMANDO MOORE MD) Course & Med Decision Making Course & Med Decision Making Pertinent Labs and Imaging studies reviewed. (See chart for details) see HPI. Patient is drug seeking for narcotics. Left AMA when we informed him we will not give narcotics. (NACHO CHI APRN) Dragon Disclaimer Dragon Disclaimer This electronic medical record was generated, in whole or in part, using a voice recognition dictation system. (NACHO CHI APRN) Departure Departure Impression: Primary Impression: Drug-seeking behavior Additional Impressions: Chest pain Right shoulder pain Disposition: AGAINST MEDICAL ADVICE Condition: STABLE Referrals: DADA BROWN MD (PCP) Problem Qualifiers Additional Impressions: Chest pain Chest pain type: unspecified Qualified Codes: R07.9 - Chest pain, unspecified Right shoulder pain Chronicity: acute Qualified Codes: M25.511 - Pain in right shoulder NACHO CHI APRN Aug 26, 2018 10:05 ARMANDO MOORE MD Aug 26, 2018 10:32
[2018-08-26] MEDS ORDERED: ASPIRIN 325 MG TABLET PO ONE (10:30)
--- NOTE | 2018-08-26 10:36 | RAD ---
EXAM: CHEST 1 VIEW History: Chest pain COMPARISON: 08/04/2018 TECHNIQUE: Single portable radiograph of the chest FINDINGS: The cardiac silhouette is unremarkable. Minimal bibasilar lung airspace opacities. The costophrenic sulci are clear and well demarcated. Right-sided central line is identified. IMPRESSION: Minimal bibasilar lung airspace opacities likely atelectasis or infiltrates. Electronically signed by: Cj Ascencio MD (08/26/2018 10:34 AM) [place] [id number]
--- NOTE | 2018-08-26 10:42 | RAD ---
Examination: 2 views of the right shoulder HISTORY: History of pain COMPARISON: None available. FINDINGS: The humerus head is within the glenoid. Mild degenerative changes identified in the glenohumeral joint, acromioclavicular joint. There is no acute fracture or dislocation identified. IMPRESSION: Mild degenerative changes glenohumeral, acromioclavicular joint. Electronically signed by: Cj Ascencio MD (08/26/2018 10:39 AM) [place] [id number]
--- NOTE | 2018-08-26 11:38 | EKG ---
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
== END 2018-08-26 10:23 | disposition left against medical advice (07) ==
LOC: ER 09:32
DX: R07.89 Other chest pain (principal); M25.511 Pain in right shoulder; Z76.5 Malingerer [conscious simulation]; M79.89 Other specified soft tissue disorders; E11.9 Type 2 diabetes mellitus without complications; E78.00 Pure hypercholesterolemia, unspecified; I25.2 Old myocardial infarction; Z95.1 Presence of aortocoronary bypass graft; Z88.0 Allergy status to penicillin; Z88.5 Allergy status to narcotic agent; Z88.8 Allergy status to other drugs, medicaments and biological substances
CPT/HCPCS: 71045; 73030; 93005; 99284

== ENCOUNTER 2018-09-04 17:52 | Emergency (ER) | payer OTHER ==
--- NOTE | 2018-09-04 18:43 | PHYS DOC ---
Past Medical History Past Medical History: Diabetes-Type II, High Cholesterol, Heart Disease, [place], Seizure, Other Additional Past Medical Histor: CARDIAC CONVULSIVE SYNCOPE, Hypomagnesemia Past Surgical History: Coronary Bypass Surgery, Other Additional Past Surgical Histo: "12 THORACIC SURGERIES" Alcohol Use: None Drug Use: None Adult General Chief Complaint Chief Complaint: SHOUDLER HPI HPI Patient is a 53 year old male with history of diabetes type 2, high cholesterol, seizures, drug seeking behavior, who presents to the ED today stat ing he was sent from [facility] specifically Dr. Carpio to get an MRI of the right shoulder which he states was ordered by Dr. Nascimento MDM Patient is well known to this ED for drug seeking behavior. I had already contacted [facility], before going to the room to see him and the The RN at [facility] stated patient was seen this morning for a seizure at [facility], given three doses of pain medicines, he returned back at 3 PM complaining of right shoulder pain and wanting MRI of the shoulder from a fall. He was informed the Ed does not do any MRI for shoulder pain or any nerve studies and instructed to follow-up with Dr. Nascimento, apparently he left the room then returned stating he has an order for MRI from Dr. Nascimento and is going to [place]. Informed patient we do not do MRI in the Ed for shoulder pain we even have a memorandum from hospital administration concerning MRI studies. He started asking if he can see Dr. Garcia, informed Dr. Garcia is not available today, he asked if he can see Dr. Tafoya informed he is taking care of a critical patient. He got more verbally aggressive stating we are refusing to do an MRI. Informed again he has no indication for ED MRI. His started removing his monitoring leads stating they need to leave there is nothing we are going to do for him. Off note his has a left shoulder immobilizer on. He stood up and left stating this is a law suit we are refusing to do MRI on his RUE. ARTURO Orta and Ade were present in the room Review of Systems Review of Systems Constitutional: Denies fever or chills [] Eyes: Denies change in visual acuity, redness, or eye pain [] HENT: Denies nasal congestion or sore throat [] Respiratory: Denies cough or shortness of breath [] Cardiovascular: No additional information not addressed in HPI [] GI: Denies abdominal pain, nausea, vomiting, bloody stools or diarrhea [] : Denies dysuria or hematuria [] Musculoskeletal: Denies back pain or joint pain [] Integument: Denies rash or skin lesions [] Neurologic: Denies headache, focal weakness or sensory changes [] Endocrine: Denies polyuria or polydipsia [] All other systems were reviewed and found to be within normal limits, except as documented in this note. Allergies Allergies Allergies Coded Allergies Type Severity Reaction Last Updated Verified Penicillins Allergy Intermediate 01/09/16 Yes ketorolac Allergy Intermediate 01/09/16 Yes codeine Allergy Mild Itching 06/10/18 Yes Physical Exam Physical Exam Constitutional: Well developed, well nourished, no acute distress, non-toxic appearance. [] HENT: Normocephalic, atraumatic, bilateral external ears normal, oropharynx moist, no oral exudates, nose normal. [] Eyes: PERRLA, EOMI, conjunctiva normal, no discharge. [] Neck: Normal range of motion, no tenderness, supple, no stridor. [] Cardiovascular:Heart rate regular rhythm, no murmur [] Lungs & Thorax: Bilateral breath sounds clear to auscultation [] Abdomen: Bowel sounds normal, soft, no tenderness, no masses, no pulsatile masses. [] Skin: Warm, dry, no erythema, no rash. [] Back: No tenderness, no CVA tenderness. [] Extremities: Right shoulder exam not done Neurologic: Alert and oriented X 3, normal motor function, normal sensory function, no focal deficits noted. [] Psychologic: Affect is flat, aggressive verbally EKG EKG [] Radiology/Procedures Radiology/Procedures [] Course & Med Decision Making Course & Med Decision Making Pertinent Labs and Imaging studies reviewed. (See chart for details) See history of present illness Dragon Disclaimer Dragon Disclaimer This electronic medical record was generated, in whole or in part, using a voice recognition dictation system. Departure Departure Impression: Primary Impression: Drug-seeking behavior Additional Impression: Right shoulder pain Disposition: 01 HOME, SELF-CARE Condition: STABLE Problem Qualifiers Additional Impression: Right shoulder pain Chronicity: acute Qualified Codes: M25.511 - Pain in right shoulder MUTUNGA,NACHO EQUIPMENT MECHANIC SPECIALIST Sep 04, 2018 18:43
== END 2018-09-04 18:32 | disposition left against medical advice (07) ==
LOC: ER 17:52
DX: M25.511 Pain in right shoulder (principal); R56.9 Unspecified convulsions; Z76.5 Malingerer [conscious simulation]; E11.9 Type 2 diabetes mellitus without complications; E78.00 Pure hypercholesterolemia, unspecified; I25.2 Old myocardial infarction; Z95.1 Presence of aortocoronary bypass graft; Z88.0 Allergy status to penicillin; Z88.5 Allergy status to narcotic agent; Z88.8 Allergy status to other drugs, medicaments and biological substances
CPT/HCPCS: 99281